=== PATIENT | male | born 1980 | race Caucasian/White ===

== ENCOUNTER 2023-09-06 23:36 | Emergency (ER) | payer SELFPAY ==
[~2023-09-06] VITALS: Ht 177.8 cm; Wt 136.0 kg
[2023-09-07] MEDS ORDERED: LORAZEPAM 2MG/ML INJ IM ONE
[2023-09-07] MEDS: LORAZEPAM 2MG/ML INJ IV ONE (00:40)
[2023-09-07 00:49] LABS: BASOPHILS % 0.3 % (0.0-2.0); EOSINOPHILS % 0.2 % (0.0-5.0); HEMATOCRIT. 38.5 % (42.0-52.0); HEMOGLOBIN. 12.7 g/dL (14.0-18.0); LYMPHOCYTES % 11.6 % (20.0-50.0); MEAN CORPUSCULAR HEMOGLOBIN 28.7 pg (28.0-32.0); MEAN PLATELET VOLUME 8.5 fl (7.4-10.4); MONOCYTES % 10.3 % (2.0-8.0); NEUTROPHILS % 77.6 % (40.0-76.0); PLATELET 277 x1000/uL (130-400); RED BLOOD CELL COUNT 4.43 mill/uL (4.7-6.1); RED CELL DISTRIBUTION WIDTH 14.8 % (11.6-14.6); WHITE BLOOD COUNT 15.9 x1000/uL (4.5-11.0)
[2023-09-07 01:05] LABS: ACETAMINOPHEN 5 ug/mL (10-30); ALANINE AMINOTRANSFERASE 154 IU/L (10-49); ALBUMIN 4.9 g/dL (3.2-4.8); ASPARTATE AMINOTRANSFERASE 187 IU/L (<34); BILIRUBIN TOTAL 0.6 mg/dL (0.1-1.0); CALCIUM 9.3 mg/dL (8.7-10.4); CARBON DIOXIDE 25 mEq/L (21-32); CHLORIDE 105 mEq/L (98-107); CREATININE 1.9 mg/dL (0.6-1.3); ETHANOL BLOOD < 10 mg/dL (<10); GLUCOSE 120 mg/dL (70-105); PROTEIN TOTAL 8.7 g/dL (6.0-8.3); SODIUM 141 mEq/L (136-145); UREA NITROGEN BLOOD 25 mg/dL (9-23)
[2023-09-07] MEDS: MIDAZOLAM HCL 2 MG/2 ML VIAL IV ONE ×2 (01:33→02:00)
[2023-09-07] MEDS: SODIUM CHLORIDE 0.9% 1,000 ML IV ONE (01:36)
[2023-09-07 02:00] VITALS: O2SAT 98
[2023-09-07] MEDS ORDERED: MIDAZOLAM HCL 2 MG/2 ML VIAL IV ONE (02:15)
[2023-09-07] MEDS ORDERED: PROPOFOL 10MG/ML 100ML 100 ML IV ONE (02:15)
[2023-09-07] MEDS ORDERED: SODIUM CHLORIDE 0.9% 1000ML BAG (SEPSIS BOLUS) IV ONE (02:15)
[2023-09-07] MEDS ORDERED: ETOMIDATE 2MG/ML 10ML VIAL IV ONE (02:15)
[2023-09-07] MEDS ORDERED: SUCCINYLCHOLINE CHLORIDE 200MG/10ML IV ONE (02:15)
[2023-09-07 02:18] VITALS: BP 151/112; PULSE 41; RESP 12; TEMP 98.5
[2023-09-07 02:39] LABS: CREATINE KINASE 5000 IU/L (46-171)
== END 2023-09-07 02:44 ==
LOC: ER 23:49 → CANBEDREQ 09-07 05:00
DX: I46.9 Cardiac arrest, cause unspecified (principal); J96.91 Respiratory failure, unspecified with hypoxia; M62.82 Rhabdomyolysis; N17.9 Acute kidney failure, unspecified; F19.10 Other psychoactive substance abuse, uncomplicated; F15.90 Other stimulant use, unspecified, uncomplicated; F14.90 Cocaine use, unspecified, uncomplicated
CPT/HCPCS: 36415 ×2; 99291; 99292; 80053; 80307; 80329; 80320; 82550; 82962; 85025; 31500; 96361; 96374; J2250; J7030; Z7610 ×7; J2060; G0480